=== PATIENT | male | born 1980 | race Caucasian/White ===

== ENCOUNTER 2017-08-27 21:47 | Emergency (ER) | payer BC, OTHER ==
[2017-08-27 22:06] VITALS: BP 137/93; PULSE 66; RESP 18; TEMP 97.9
--- NOTE | 2017-08-27 22:27 | ED ---
General Adult HPI - General Chief complaint: Extremity Injury, Lower Stated complaint: Leg pain Time Seen by Provider: 08/27/17 22:09 Source: patient, RN notes reviewed Mode of arrival: ambulatory Limitations: no limitations - History of Present Illness Initial comments: 37-year-old male presents to the emergency department presents to the Er with cc of right calf strain. Patient was chasing after his daughter he went to step and all of a sudden he felt a pull in his right calf. Patient states he now has pain to his right posterior calf. He states that he is able to move that foot with some discomfort. He denies any knee pain he denies actually fall trauma or injury. They were concerned due to his continued pain and discomfort so they thought that they should be seen.Patient denies any recent fever, chills, shortness of breath, chest pain, back pain, abdominal pain, nausea vomiting, numbness or tingling, dysuria or hematuria, constipation or diarrhea, headaches or visual changes, or any other current symptoms. - Related Data Home Medications Medication Instructions Recorded Confirmed No Known Home Medications [No 08/27/17 08/27/17 Known Home Medications] Allergies Allergy/AdvReac Type Severity Reaction Status Date / Time No Known Allergies Allergy Verified 08/27/17 22:06 Review of Systems ROS Statement: Those systems with pertinent positive or pertinent negative responses have been documented in the HPI. ROS Other: All systems not noted in ROS Statement are negative. Past Medical History Past Medical History: No Reported History History of Any Multi-Drug Resistant Organisms: None Reported Past Surgical History: Hernia Repair Additional Past Surgical History / Comment(s): wrist surgery Past Psychological History: No Psychological Hx Reported Smoking Status: Never smoker Past Alcohol Use History: None Reported Past Drug Use History: None Reported General Exam - General Exam Comments Initial Comments: General: The patient is awake and alert, in no distress, and does not appear acutely ill. Neck: The neck is supple, there is no tenderness. Cardiovascular: There is a regular rate and rhythm. No murmur, rub or gallop is appreciated. Respiratory: Lungs are clear to auscultation, respirations are non-labored, breath sounds are equal. No wheezes, stridor, rales, or rhonchi. Musculoskeletal: Sensation intact with 2+ pulses at the right lower extremity. Frontal motion of right knee and right ankle. Patient does have tenderness to patient the right calf. Patient has normal response on monroy testing. No deformity no ecchymosis no laxity noted. Neurological: CN II-XII intact, There are no obvious motor or sensory deficits. Coordination appears grossly intact. Speech is normal. Skin: Skin is warm and dry and no rashes or lesions are noted. Psychiatric: Normal mood and affect. Limitations: no limitations Course Vital Signs 08/27/17 22:05 Temperature 97.9 F Pulse Rate 66 Respiratory 18 Rate Blood Pressure 137/93 O2 Sat by Pulse 98 Oximetry Medical Decision Making - Medical Decision Making 37-year-old male presents for right calf strain. This time patient underwent an x-ray that is negative. This time he has good strength of the calf. We discussed stretching. We discussed follow-up we discussed return parameters all questions. Patient stated he understood he is given this plan. All questions have been answered. He will be discharged. - Radiology Data Radiology results: report reviewed, image reviewed Disposition Clinical Impression: Strain of calf muscle Disposition: HOME SELF-CARE Condition: Stable Instructions: Muscle Cramp (ED) Additional Instructions: Please use medication as discussed. Please follow up with family doctor if symptoms have not improved over the next two days. Please return to the emergency room if your symptoms increase or worsen or for any other concerns. Referrals: Nick Emery MD [Primary Care Provider] - 1-2 days Time of Disposition: 22:41
--- NOTE | 2017-08-27 22:39 | XR ---
EXAM: XR Right Tibia and Fibula, 2 Views CLINICAL HISTORY: Reason: Pain TECHNIQUE: Frontal and lateral views of the right tibia and fibula. COMPARISON: None. FINDINGS: Bones/joints: Unremarkable. No acute fracture. No dislocation. Soft tissues: Unremarkable. No radiopaque foreign body. IMPRESSION: No acute abnormality identified.
[2017-08-27] MEDS ORDERED: CYCLOBENZAPRINE 10MG STARTER 3 TAB BTL PO STA (22:40)
== END 2017-08-27 22:56 | disposition home or self-care (01) ==
LOC: EC 21:47
DX: S86.911A Strain of unspecified muscle(s) and tendon(s) at lower leg level, right leg, initial encounter (principal)
CPT/HCPCS: 99283

== ENCOUNTER 2018-12-30 17:39 | Emergency (ER) | payer OTHER ==
[2018-12-30 17:43] VITALS: BP 142/97; PULSE 90; RESP 16; TEMP 97.9
[2018-12-30] MEDS ORDERED: AMOXIC-POT CLAV 875MG STARTER 2 EACH TABLET PO STA (18:20)
[2018-12-30] MEDS ORDERED: LIDOCAINE 1% INJ 10MG/ML (20 ML MDV) SQ ONE (18:21)
--- NOTE | 2018-12-30 18:21 | ED ---
Wound/Laceration HPI - General Chief Complaint: Wound/Laceration Stated Complaint: Hand Lac Time Seen by Provider: 12/30/18 17:44 Source: patient Mode of arrival: ambulatory Limitations: no limitations - History of Present Illness Initial Comments: 38-year-old male presenting today for chief complaint of laceration of the left hand between digits 3 and 4. Patient states he was turkey hunting when he picked up and he thought was a [place] began flopping around and cut him in the left hand, between digits 3 &4. Pt tetanus UTD. Pt denies any other areas of injury. Patient thought the laceration may need sutures and presented for ventilation. Remaining ROS negative, patient denies any recent fever, chills, shortness of breath, chest pain, back pain, abdominal pain, nausea or vomiting, numbness or tingling, dysuria or hematuria, constipation or diarrhea, headaches or visual changes, or any other complaints. - Related Data Previous Rx's Medication Instructions Recorded Amoxicillin/Potassium Clav 1 tab PO Q12HR 5 Days #10 tab 12/30/18 [Augmentin 875-125 Tablet] Allergies Allergy/AdvReac Type Severity Reaction Status Date / Time No Known Allergies Allergy Verified 12/30/18 18:00 Review of Systems ROS Statement: Those systems with pertinent positive or pertinent negative responses have been documented in the HPI. ROS Other: All systems not noted in ROS Statement are negative. Past Medical History Past Medical History: No Reported History History of Any Multi-Drug Resistant Organisms: None Reported Past Surgical History: Hernia Repair Additional Past Surgical History / Comment(s): wrist surgery Past Psychological History: No Psychological Hx Reported Smoking Status: Never smoker Past Alcohol Use History: None Reported Past Drug Use History: None Reported General Exam - General Exam Comments Initial Comments: General: The patient is awake and alert, in no distress, and does not appear a cutely ill. Eye: Pupils are equal, round and reactive to light, extra-ocular movements are intact. No nystagmus. There is normal conjunctiva bilaterally. No signs of icterus. Ears, nose, mouth and throat: There are moist mucous membranes and no oral lesions. Neck: The neck is supple, there is no tenderness or JVD. Cardiovascular: There is a regular rate and rhythm. No murmur, rub or gallop is appreciated. Respiratory: Lungs are clear to auscultation, respirations are non-labored, breath sounds are equal. No wheezes, stridor, rales, or rhonchi. Gastrointestinal: Soft, non-distended, non-tender abdomen without masses or organomegaly noted. There is no rebound or guarding present. No CVA tenderness. Bowel sounds are unremarkable. Musculoskeletal: Normal ROM, no tenderness. Strength 5/5 MTP, DIP and PIP. Sensation intac both proximal and distal to injury sitet. Radial pulses equal bilaterally 2+. Capillary refill < 2 seconds. Neurological: A&O x 3. CN II-XII intact, There are no obvious motor or sensory deficits. Coordination appears grossly intact. Speech is normal. Skin: Skin is warm and dry and no rashes or lesions are noted. 1cm laceration between fingers. No evidence of damage to underlying structures. Psychiatric: Cooperative, appropriate mood & affect, normal judgment. Limitations: no limitations Course Vital Signs 12/30/18 12/30/18 17:41 18:50 Temperature 97.9 F 97.9 F Pulse Rate 90 90 Respiratory 16 16 Rate Blood Pressure 142/97 142/97 O2 Sat by Pulse 96 96 Oximetry Procedures - Laceration Laceration #1 Consent Obtained: verbal consent Indication: laceration Site: hand Size (cm): 1 Description: linear Anesthetic Used: lidocaine 1% Anesthesia Technique: local infiltration Amount (mls): 2 Pre-repair: wound explored, irrigated extensively, deep structures intact Size of Sutures: 5-0 Number of Sutures: 4 Technique: simple, interrupted Complications: pain Patient Tolerated Procedure: well, no complications Medical Decision Making - Medical Decision Making 38-year-old male presenting for left hand laceration. No evidence of underlying structure injury. Irrigated extensively. Wound edges approximated. No neurovascular deficits. No findings consistent with tendon injury. Patient is placed on antibiotic given mechanism of injury. Return parameters were discussed at length the patient verbalizes understanding. Suture care as well as signs of infection were discussed. She was discharged. While after discussing case with type provider Dr. Watt Disposition Clinical Impression: Hand laceration Disposition: HOME SELF-CARE Condition: Good Instructions (If sedation given, give patient instructions): Care For Your Stitches (ED), Laceration (ED) Additional Instructions: Please use medication as discussed. Please follow-up for suture removal in 7 days. Please return to emergency room if the symptoms increase or worsen or for any other concerns. Prescriptions: Amoxicillin/Potassium Clav [Augmentin 875-125 Tablet] 1 tab PO Q12HR 5 Days #10 tab Is patient prescribed a controlled substance at d/c from ED?: No Referrals: Nick Emery MD [Primary Care Provider] - 1-2 days Time of Disposition: 18:21
== END 2018-12-30 18:50 | disposition home or self-care (01) ==
LOC: EC 17:39
DX: S61.412A Laceration without foreign body of left hand, initial encounter (principal); W61.49XA Other contact with turkey, initial encounter
CPT/HCPCS: 99282; 12001; J2001

== ENCOUNTER 2019-06-06 22:50 | Emergency (ER) | payer OTHER ==
[2019-06-06 22:54] VITALS: PULSE 78; RESP 18; TEMP 98
--- NOTE | 2019-06-06 23:23 | XR ---
EXAMINATION TYPE: XR elbow complete RT DATE OF EXAM: 06/06/2019 COMPARISON: NONE HISTORY: Swelling and pain TECHNIQUE: 3 views FINDINGS: There is spurring on the olecranon process. There is mild soft tissue swelling over the pos terior proximal ulna. I see no fracture nor dislocation. There is no sign of joint effusion. IMPRESSION: Soft tissue swelling and olecranon process spur formation. No fracture.
--- NOTE | 2019-06-06 23:39 | ED ---
Extremity Problem HPI - General Chief complaint: Extremity Problem,Nontraumatic Stated complaint: Elbow swelling Time Seen by Provider: 06/06/19 22:56 Source: patient Mode of arrival: ambulatory Limitations: no limitations - History of Present Illness Initial comments: Patient is a 39-year-old male presenting to emergency Department with chief complaint of elbow swelling. Patient reports this occurred a few hours prior to ED arrival. Patient reports he was driving in his car and had his right elbow on the armrest when he developed a gradual onset of swelling and erythema. Patient reports pain in the region as well that is exacerbated with full flexion and extension. Patient denies any trauma to the region. Patient denies any numbness or tingling. Patient reports the pain is about a 6 throbbing. Patient denies taking any medication to alleviate the symptoms. - Related Data Home Medications Medication Instructions Recorded Confirmed Ibuprofen [Motrin Ib] 800 mg PO Q6H PRN 06/06/19 06/06/19 Previous Rx's Medication Instructions Recorded Cephalexin [Keflex] 500 mg PO Q6HR 5 Days #20 cap 06/06/19 Allergies Allergy/AdvReac Type Severity Reaction Status Date / Time No Known Allergies Allergy Verified 06/06/19 23:05 Review of Systems ROS Statement: Those systems with pertinent positive or pertinent negative responses have been documented in the HPI. ROS Other: All systems not noted in ROS Statement are negative. Past Medical History Past Medical History: No Reported History History of Any Multi-Drug Resistant Organisms: None Reported Past Surgical History: Hernia Repair Additional Past Surgical History / Comment(s): wrist surgery Past Psychological History: No Psychological Hx Reported Smoking Status: Never smoker Past Alcohol Use History: None Reported Past Drug Use History: None Reported General Exam Limitations: no limitations General appearance: alert, in no apparent distress Head exam: Present: atraumatic, normocephalic, normal inspection Eye exam: Present: normal appearance Pupils: Present: normal accommodation ENT exam: Present: normal exam, mucous membranes moist, normal external ear exam Neck exam: Present: normal inspection Respiratory exam: Present: normal lung sounds bilaterally Cardiovascular Exam: Present: regular rate, normal rhythm, normal heart sounds Extremities exam: Present: full ROM, normal capillary refill, other (+2 ulnar and radial pulses bilaterally.). Absent: normal inspection (Erythema and swelling at the right elbow) Back exam: Present: normal inspection Neurological exam: Present: alert, oriented X3 Psychiatric exam: Present: normal affect, normal mood Skin exam: Present: warm, intact, normal color Course Vital Signs 06/06/19 22:51 Temperature 98.0 F Pulse Rate 78 Respiratory 18 Rate Blood Pressure 140/93 O2 Sat by Pulse 100 Oximetry Medical Decision Making - Medical Decision Making Patient is a 39-year-old male presenting to emergency Department with a chief complaint of elbow pain. Patient reports the pain, swelling and erythema has started a few hours ago prior to ED arrival. Patient denies any trauma to the region. X-ray is indicative of soft tissue swelling with an olecranon process spurring. Based on physical examination the patient has a mild case of cellulitis. Patient will be treated with Keflex in the ED and discharged with a 5 day course of Keflex. Patient does still have full range of motion, systemic fever, or pain out of proportion. I have low suspicion for a septic bursitis. Strict return parameters were thoroughly discussed the patient was understanding and agreeable. Dr. Young also examined the patient and is in agreement with treatment plan. Disposition Clinical Impression: Cellulitis Disposition: HOME SELF-CARE Condition: Stable Instructions (If sedation given, give patient instructions): Cellulitis (DC) Prescriptions: Cephalexin [Keflex] 500 mg PO Q6HR 5 Days #20 cap Is patient prescribed a controlled substance at d/c from ED?: No Referrals: Nick Emery MD [Primary Care Provider] - 1-2 days Time of Disposition: 23:57
[2019-06-06] MEDS ORDERED: CEPHALEXIN 500MG STARTER PACK 4 CAP BTL PO STA (23:54)
[2019-06-07 01:04] VITALS: BP 137/89
== END 2019-06-07 00:09 | disposition home or self-care (01) ==
LOC: EC 22:50
DX: L03.113 Cellulitis of right upper limb (principal)
CPT/HCPCS: 99283